=== PATIENT | male | born 1960 | race Caucasian/White ===

== ENCOUNTER → 2019-04-16 | Outpatient (CLI) | payer BC ==
--- NOTE | 2019-04-16 10:45 | Diagnostic Imaging Report ---
EXAMINATION: Magnetic resonance imaging of the left knee without intravenous contrast. DATE: April 16, 2019. COMPARISON: None. INDICATION: 58-year-old male, left knee pain. TECHNIQUE: Multiplanar, multisequence noncontrast enhanced MR imaging was accomplished. FINDINGS: MENISCI: There is well demarcated volume loss involving the body and posterior horn of the medial meniscus, most consistent with prior partial meniscectomy changes. There is an oblique tear involving the posterior horn of the medial meniscus extending into the posterior root attachment. There is 4 mm medial meniscal extrusion. There is no parameniscal cyst. There is an oblique tear involving the anterior horn, body, and body/posterior horn junction of the lateral meniscus. There is well demarcated blunting of the posterior horn of the lateral meniscus, likely reflecting partial meniscectomy changes. There is no parameniscal cyst. LIGAMENTS AND TENDONS: The anterior and posterior cruciate ligaments are intact. There is fluid deep to the superficial component of the medial collateral ligament complex which may relate to an MCL bursitis. The superficial component of the medial collateral ligament complex is intact. The iliotibial band, mid third lateral capsular ligament, fibular collateral ligament, biceps femoris tendon, and conjoined tendon are intact. The quadriceps tendon and patella ligament are intact. JOINT: There are broad areas of full-thickness cartilage loss of the medial compartment. The patellofemoral and lateral compartment cartilage is grossly intact. There is a trace knee joint effusion. There is no identified intra-articular body or prominent synovitis. BONE: There is low-level degenerative related marrow edema adjacent to the medial compartment. There is no acute fracture, bone contusion, or evidence of osteonecrosis. BURSAE AND SOFT TISSUES: There is no Andres's cyst. There is nonspecific prepatellar subcutaneous edema. IMPRESSION: 1. Partial meniscectomy changes of the medial and lateral meniscus as described above with tears of both the medial and lateral meniscus. There is 4 mm medial meniscal extrusion. There is no parameniscal cyst. 2. Intact anterior and posterior cruciate ligaments. Additional ligaments and tendons are intact. 3. Prominent fluid deep to the superficial component of the medial collateral ligament complex which may reflect MCL bursitis. 4. No acute fracture, bone contusion, or evidence of osteonecrosis. 5. Severe medial compartment osteoarthritis. Trace knee joint effusion without identified intra-articular body or prominent synovitis. Dictated by: Dictated on workstation # [id number]
== END ==
LOC: RAD 09:20
PROVIDERS: ATTEND Orthopaedic Surgery
DX: M23.242 Derangement of anterior horn of lateral meniscus due to old tear or injury, left knee (principal); M23.252 Derangement of posterior horn of lateral meniscus due to old tear or injury, left knee; M23.222 Derangement of posterior horn of medial meniscus due to old tear or injury, left knee; M17.12 Unilateral primary osteoarthritis, left knee; M94.8X8 Other specified disorders of cartilage, other site; Z98.890 Other specified postprocedural states
CPT/HCPCS: 73721

== ENCOUNTER 2023-01-21 09:56 | Outpatient (CLI) | payer BC ==
[~2023-01-21] VITALS: Ht 182.9 cm; Wt 77.1 kg
== END 2023-01-21 14:00 | disposition home or self-care (01) ==
LOC: PREOP 09:56
PROVIDERS: ATTEND Specialist
DX: Z01.818 Encounter for other preprocedural examination (principal)

== ENCOUNTER 2023-01-28 05:47 | Day surgery (SDC) | payer BC ==
[~2023-01-28] VITALS: Ht 182.9 cm; Wt 77.1 kg
[2023-01-28] MEDS ORDERED: LIDOCAINE PF 1% 2 ML VIAL IR PRN (06:15)
[2023-01-28] MEDS ORDERED: TIMOLOL 0.5% (CATARACTS) 0.3 ML BTL OU PRN (06:15)
[2023-01-28] MEDS ORDERED: POVIDONE IODINE OPHTH SOLN 5% 30 ML OP ONE (06:15)
[2023-01-28] MEDS ORDERED: MOXIFLOXACIN OPHTH SOLN 5 MG/ML 0.5 ML SYRINGE OP ONE (06:15)
[2023-01-28] MEDS: TETRACAINE 0.5% OPHTH SOLN 5 ML BTL OU PRN ×4 (06:16→06:38)
[2023-01-28 06:24] VITALS: BP 113/78
[2023-01-28] MEDS: PHENYLEPHRINE 10% OPHTH SOLN 5 ML BTL OU SCH ×3 (06:28→06:38)
[2023-01-28] MEDS: TROPICAMIDE 1% OPH SOLN (MYDRIACYL) 15 ML BTL OP SCH ×3 (06:28→06:38)
[2023-01-28] MEDS ORDERED: MIDAZOLAM INJ 2 MG/2 ML VIAL ONE (06:52)
--- NOTE | 2023-01-28 07:14 | Ophthalmologist Pre-Op Note ---
Pre-Operative Progress Note H&P Reviewed The H&P was reviewed, patient examined and no changes noted. Date H&P Reviewed: Jan 28, 2023 Time H&P Reviewed: 07:13 Pre-Op Dx Cataract, Right Eye YENNY SALOMON MD Jan 28, 2023 07:13
--- NOTE | 2023-01-28 07:35 | Ophthalmology Operative Report ---
Cataract removal/placement IOL PREOPERATIVE DIAGNOSIS: Cataract Right Eye POSTOPERATIVE DIAGNOSIS: Cataract Right Eye PROCEDURE: Cataract removal and placement of posterior chamber implant, right eye SURGEON: Jose Salomon ANESTHESIA: Topical with sedation COMPLICATIONS: None ESTIMATED BLOOD LOSS: Minimal DESCRIPTION OF PROCEDURE: After proper informed consent was obtained, the patient, a 62 male, was taken to the Operating Room and the right eye was anesthetized with tetracaine. The right eye was then prepped and draped in the usual manner. A wire lid speculum was placed. A paracentesis was made at the left hand position. Preservative free lidocaine was injected into the anterior chamber followed by viscoelastic. A clear corneal incision was made in the temporal position. A capsulorrhexis was preformed and the central nuclear and cortical material were removed. The posterior capsule was polished and Gerry 19.0 [id number] IOL was placed into the capsular bag. The residual viscoelastic was aspirated and balanced saline solution was injected into the anterior chamber. Moxifloxacin was injected into the anterior chamber. The wound was checked and found to be water tight. The patient tolerated the procedure well without complications. JOSE SALOMON MD Jan 28, 2023 07:34
[2023-01-28 07:38] VITALS: BP 118/81
--- NOTE | 2023-01-28 14:19 | Anesthesia-General Post-Op ---
MAC Patient Condition Mental Status/LOC: Same as Preop Cardiovascular: Satisfactory Nausea/Vomiting: Absent Respiratory: Satisfactory Pain: Controlled Complications: Absent Post Op Complications Complications None Follow Up Care/Instructions Patient Instructions None needed. Anesthesiology Discharge Order Discharge Order Patient is doing well, no complaints, stable vital signs, no apparent adverse anesthesia problems. No complications reported per nursing. OLGA LUNA CRNA Jan 28, 2023 14:19
== END 2023-01-28 07:43 ==
LOC: SDC 05:47
PROVIDERS: ATTEND Specialist
DX: H26.9 Unspecified cataract (principal)
CPT/HCPCS: 66984; V2632